=== PATIENT | male | born 1975 | race Caucasian/White ===

== ENCOUNTER 2017-03-27 16:47 | Emergency (ER) | payer OTHER ==
--- NOTE | 2017-03-27 17:24 | DIAGNOSTIC IMAGING REPORT ---
PROCEDURE: XR FINGER - RIGHT INDICATION: TRAUMA/INJURY TECHNIQUE: Three views of the right second digit. COMPARISON: None FINDINGS: Soft tissue injury. Normal osseous structures. IMPRESSION: 1. Soft tissue injury. Normal osseous structures.
--- NOTE | 2017-03-27 17:46 | ED CLINICAL REPORT ---
Clinical Report - Physicians/Mid Levels [facility] [address] [place] [address] 03/27/2017 16:50 [id number] Time Seen: 17:08 Mar 27 2017. Arrived- By private vehicle. Historian- patient. HISTORY OF PRESENT ILLNESS Chief Complaint: Injury to the right index finger. The injury happened just prior to arrival. Occurred at home. The patient sustained a laceration. Patient is experiencing mild pain. Patient denies injury to the head or neck. ( R. finger partial amputation prior to arrival while at home from a circ saw. NO injury prior. no diff with movement.). REVIEW OF SYSTEMS The patient sustained a laceration. No tingling. All systems otherwise negative, except as recorded above. PAST HISTORY The patient's dominant hand is the right. He has not had a prior injury to the same area. Tetanus immunization status is up-to-date. SOCIAL HISTORY Smoker- current status unknown. Alcohol use. No drug use. ADDITIONAL NOTES The nursing notes have been reviewed. PHYSICAL EXAM Vital Signs: 03/27/2017 16:58 BP: 124/82. HR: 87. RR: 20. O2 saturation: 98%. Temp: 97.8 F. Pain level now: 9/10. Appearance: Alert. No acute distress. Head: Head atraumatic. CVS: Normal heart rate and rhythm. Respiratory: No respiratory distress. Breath sounds normal. Skin: Skin warm. Extremities: Tip of left index finger: (radial tip amputation involving minimal distal nail, no nail bed involvement, full thickness. No signs of osseous injury. does not involve the dip/ pip.). Soft tissue tenderness present. No bony tenderness. No wrist injury. Neuro, Vascular and Tendons: Vascular status intact. Capillary refill not prolonged. Sensation intact. Motor intact. Tendon function intact. No functional tendon deficit. PROGRESS AND PROCEDURES Laceration Repair: Time: 18:12 Mar 27 2017. Location: (left index). Time-out completed immediately before the procedure. Length: 3 cm. Complexity: complex (requiring extensive undermining). Wound with avulsion and involving fascia. Wound is clean. No sensory deficit distally. Tendon not examined. Anesthesia provided by digital block using 0.50% Marcaine. Wound explored, cleansed and irrigated. Closure of deep layer: interrupted 4-0 (6 non absorb). Post-procedure: he is stable and there are no complications. Bleeding is controlled and neuro-vascular status is intact distal to the wound. Dressing applied. Tetanus immunization up-to-date. Course of Care: patient here in the ER with a tip amputation without any osseous involvement. Discussed case with Dr. Calvo. No signs of infectious process. No osseous injury. Full range of motion. Stable. We'll attempt to place the tip onto the digit, discussed options with the patient, including the possibility that the tip may not take while and may eventually fall off. He agrees to follow-up. Tetanus visualization up-to-date. 03/27/2017 16:58 BP: 124/82. HR: 87. RR: 20. O2 saturation: 98%. Temp: 97.8 F. Pain level now: 9/10. Patient is stable. Physical exam findings are improved. Symptoms better. Patient/family counseled. Disposition: Discharged. Condition: good. CLINICAL IMPRESSION Single deep laceration to the left index finger. Complicated repair. Treatment of laceration not delayed. No infection or foreign body present. Partial nail avulsion to left index finger. INSTRUCTIONS Protect wound and keep wound area clean. Apply bacitracin twice daily. Limit use of your hand. (follow up with your DR on Friday). Prescription Medications: Hydrocodone/APAP 5mg / 325mg: take 1 orally every 6 hours as needed for pain. Dispense ten (10). No refill. Cephalexin 500 mg: take 1 capsule orally for 10 days. No refill. OTC Medications: Take OTC medications according to label instructions. Available over the counter. Acetaminophen (available over the counter): take according to label instructions. Motrin (available over the counter): take according to label instructions. Follow-up: Follow up with your doctor Friday. (Electronically signed by Mohini Zambrano P.A.-C 03/27/2017 18:14)
--- NOTE | 2017-03-27 17:46 | ED NURSING NOTES ---
Clinical Report - Nurses [facility] [address] [place] [address] 03/27/2017 16:50 Patient: LISBETH MOSQUERA TRIAGE Triage time 16:55. Acuity: LEVEL 3. Chief Complaint: INJURY TO LEFT HAND. INJURY TO THE LEFT INDEX FINGER WITH PARTIAL AMPUTATION. Alert. No acute distress. --17:01 Mahsa Pagan R.N. 16:58 03/27/17. BP: 124/82. HR: 87. RR: 20. O2 saturation: 98%. Temp: 97.8 F. Pain level now: 08/10. --17:01 Mahsa Pagan R.N. 16:58 03/27/17. BP: 124/82. HR: 87. RR: 20. O2 saturation: 98%. Temp: 97.8 F. Pain level now: 08/10. --17:01 Mahsa Pagan R.N. Weight: 90.7 kg. Height/Length: 74 inches. BMI: 25.7. --17:01 Mahsa Pagan R.N. Medications None. --16:59 Mahsa Pagan R.N. Medication/allergy information source: the patient. --17:01 Mahsa Pagan R.N. Allergies None. --16:59 Mahsa Pagan R.N. History Arrived by private vehicle. Historian: patient and family. Primary physician ([facility]). This occurred just prior to arrival. He sustained a laceration (circ saw). 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 PAST MEDICAL HX: Negative. Tetanus status: up-to-date. SURGERY HX: No history of previous surgery. SOCIAL HX: Heavy tobacco smoker (cigarette)- 1-2 packs per day. History of drug use: marijuana. Recently used drugs days ago. No alcohol use. FALL RISK ASSESSMENT: Fall risk assessment completed. No fall risk identified. NUTRITIONAL RISK ASSESSMENT: The nutritional risk assessment revealed no deficiencies. FUNCTIONAL ASSESSMENT: Functional assessment: no impairments noted. LEARNING NEEDS ASSESSMENT: The learning needs assessment revealed no barriers. SKIN INTEGRITY ASSESSMENT: Skin integrity risk assessment completed. No skin integrity risk identified. --17:01 Mahsa Pagan R.N. PROBLEMS: no known problems. ADDITIONAL SURGERIES: no known surgeries. Interventions ID band on patient. To room. --17:01 Mahsa Pagan R.N. PHYSICAL ASSESSMENT Ambulatory to room. GENERAL / NEURO / PSYCH: Oriented X 4. Appears in pain and anxious. EXTREMITIES: Limited ROM present. Left hand: superficial abrasion and laceration with controlled bleeding. SKIN: Skin is warm and dry. Laceration to left index finger. --17:02 Mahsa Pagan R.N. NURSING PROGRESS NOTES Extremity elevated. Two patient identifiers checked. Call light placed in reach. Side rails up x 2. Bed placed in lowest position. Brakes of bed on. Patient ready for evaluation. --17:03 Mahsa Pagan R.N. Wound cleansed with sterile saline and chlorhexidine. Wound irrigated with 1000 mL sterile NS using a high-pressure irrigation system; patient tolerated procedure well. --17:33 [facility]. DISPOSITION / DISCHARGE Departure time: 18:13 Mar 27 2017. Condition at departure: improved. No learning barriers present. Discharge instructions provided and reviewed with the patient and spouse. Reviewed warnings. Reviewed medication(s). Treatments reviewed. Reviewed referrals. Work note given. Patient and spouse verbalized understanding. Written instructions provided in Albanian. The patient was discharged home and accompanied by spouse. He left the Emergency Department ambulatory and via private vehicle. Spouse driving. ( Wound dressed and antibiotic ointment applied. Instructions given on dressing change and follow up .). --18:14 Pauly Owen R.N. 18:12 03/27/17. BP: 124/72. HR: 70. RR: 18. O2 saturation: 97%. Temp: 98.6 F. Pain level now 06/09. --18:14 Pauly Owen R.N. Locked/Released at 04/04/2017 7:14 by Pauly Owen R.N.
--- NOTE | 2017-03-27 17:46 | ED ORDER SUMMARY ---
..... Patient: LISBETH MOSQUERA OrderSheet [facility] VisitID: [id number] [address] [place] [address] 42y, M Registration Date/Time: 03/27/2017 ORDER SHEET Weight: 90.7 kg Allergies: None GENERAL ORDERS: Finger Right (2) Urgent (16:59 03/27/2017 EKoroleva P.A.-C) (Ack 17:01 Rosa) (Cancelled: Other18:03 EKoroleva P.A.-C) Finger Left (2) Urgent (18:03 03/27/2017 EKoroleva P.A.-C) (18:04 Glenna Richard) MEDICATION ORDERS: IV FLUIDS: ORDER SHEET NOTES: [Electronically signed by Mohini Zambrano PJoceAJoce-C (18:14 03/27/2017)] [Electronically signed by aPuly Owen R.N. (07:14 04/04/2017)] [Electronically locked/signed by Pauly Owen R.N. (07:14 04/04/2017)]
--- NOTE | 2017-03-27 17:46 | ED NURSING NOTES ---
Clinical Report - Nurses [facility] [address] [place] [address] 03/27/2017 16:50 Patient: LISBETH MOSQUERA TRIAGE Triage time 16:55. Acuity: LEVEL 3. Chief Complaint: INJURY TO LEFT HAND. INJURY TO THE LEFT INDEX FINGER WITH PARTIAL AMPUTATION. Alert. No acute distress. --17:01 Mahsa Pagan R.N. 16:58 03/27/17. BP: 124/82. HR: 87. RR: 20. O2 saturation: 98%. Temp: 97.8 F. Pain level now: 08/10. --17:01 Mahsa Pagan R.N. 16:58 03/27/17. BP: 124/82. HR: 87. RR: 20. O2 saturation: 98%. Temp: 97.8 F. Pain level now: 08/10. --17:01 Mahsa Pagan R.N. Weight: 90.7 kg. Height/Length: 74 inches. BMI: 25.7. --17:01 Mahsa Pagan R.N. Medications None. --16:59 Mahsa Pagan R.N. Medication/allergy information source: the patient. --17:01 Mahsa Pagan R.N. Allergies None. --16:59 Mahsa Pagan R.N. History Arrived by private vehicle. Historian: patient and family. [facility] This occurred just prior to arrival. He sustained a laceration (circ saw). 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 PAST MEDICAL HX: Negative. Tetanus status: up-to-date. SURGERY HX: No history of previous surgery. SOCIAL HX: Heavy tobacco smoker (cigarette)- 1-2 packs per day. History of drug use: marijuana. Recently used drugs days ago. No alcohol use. FALL RISK ASSESSMENT: Fall risk assessment completed. No fall risk identified. NUTRITIONAL RISK ASSESSMENT: The nutritional risk assessment revealed no deficiencies. FUNCTIONAL ASSESSMENT: Functional assessment: no impairments noted. LEARNING NEEDS ASSESSMENT: The learning needs assessment revealed no barriers. SKIN INTEGRITY ASSESSMENT: Skin integrity risk assessment completed. No skin integrity risk identified. --17:01 Mahsa Pagan R.N. PROBLEMS: no known problems. ADDITIONAL SURGERIES: no known surgeries. Interventions ID band on patient. To room. --17:01 Mahsa Pagan R.N. PHYSICAL ASSESSMENT Ambulatory to room. GENERAL / NEURO / PSYCH: Oriented X 4. Appears in pain and anxious. EXTREMITIES: Limited ROM present. Left hand: superficial abrasion and laceration with controlled bleeding. SKIN: Skin is warm and dry. Laceration to left index finger. --17:02 Mahsa Pagan R.N. NURSING PROGRESS NOTES Extremity elevated. Two patient identifiers checked. Call light placed in reach. Side rails up x 2. Bed placed in lowest position. Brakes of bed on. Patient ready for evaluation. --17:03 Mahsa Pagan R.N. Wound cleansed with sterile saline and chlorhexidine. Wound irrigated with 1000 mL sterile NS using a high-pressure irrigation system; patient tolerated procedure well. --17:33 [facility]. DISPOSITION / DISCHARGE Departure time: 18:13 Mar 27 2017. Condition at departure: improved. No learning barriers present. Discharge instructions provided and reviewed with the patient and spouse. Reviewed warnings. Reviewed medication(s). Treatments reviewed. Reviewed referrals. Work note given. Patient and spouse verbalized understanding. Written instructions provided in Filipino. The patient was discharged home and accompanied by spouse. He left the Emergency Department ambulatory and via private vehicle. Spouse driving. ( Wound dressed and antibiotic ointment applied. Instructions given on dressing change and follow up .). --18:14 Pauly Owen R.N. 18:12 03/27/17. BP: 124/72. HR: 70. RR: 18. O2 saturation: 97%. Temp: 98.6 F. Pain level now 06/09. --18:14 Pauly Owen R.N. Locked/Released at 04/04/2017 7:14 by Pauly Owen R.N.
--- NOTE | 2017-03-27 17:46 | ED ORDER SUMMARY ---
..... Patient: LISBETH MOSQUERA OrderSheet [facility] VisitID: [id number] [address] [place] [address] 42y, M Registration Date/Time: 03/27/2017 ORDER SHEET Weight: 90.7 kg Allergies: None GENERAL ORDERS: Finger Right (2) Urgent (16:59 03/27/2017 EKoroleva P.A.-C) (Ack 17:01 Rosa) (Cancelled: Other18:03 EKoroleva P.A.-C) Finger Left (2) Urgent (18:03 03/27/2017 EKoroleva P.A.-C) (18:04 Glenna Richard) MEDICATION ORDERS: IV FLUIDS: ORDER SHEET NOTES: [Electronically signed by Mohini Zambrano PJoceAJoce-C (18:14 03/27/2017)] [Electronically signed by Pauly Owen R.N. (07:14 04/04/2017)] [Electronically locked/signed by Pauly Owen R.N. (07:14 04/04/2017)]
--- NOTE | 2017-03-28 13:50 | DIAGNOSTIC IMAGING REPORT ---
PROCEDURE: XR FINGER - LEFT INDICATION: TRAUMA/INJURY TECHNIQUE: Three views of the left hand and index finger. COMPARISON: None FINDINGS: There is soft tissue injury. No osseous injury. No fracture. IMPRESSION: 1. No bony injury. Soft tissue resection.
--- NOTE | 2017-04-04 07:14 | ED DISCHARGE INSTRUCTIONS ---
Patient: LISBETH MOSQUERA General Instructions [facility] VisitID: [id number] [address] [place] [address] 42y, M Registration Date/Time: 03/27/2017 Single deep laceration to the left index finger. Complicated repair. Treatment of laceration not delayed. No infection or foreign body present. Partial nail avulsion to left index finger. INSTRUCTIONS Protect wound and keep wound area clean. Apply bacitracin twice daily. Limit use of your hand. (follow up with your DR on Friday). Prescription Medications: Hydrocodone/APAP 5mg / 325mg: take 1 orally every 6 hours as needed for pain. Dispense ten (10). No refill. Cephalexin 500 mg: take 1 capsule orally for 10 days. No refill. OTC Medications: Take OTC medications according to label instructions. Available over the counter. Acetaminophen (available over the counter): take according to label instructions. Motrin (available over the counter): take according to label instructions. Follow-up: Follow up with your doctor Friday. ADDITIONAL INFORMATION Laceration, Extremity (Sutures, Matti, Or Tape) A laceration is a cut through the skin. This will usually require stitches (sutures) or matti if it is deep. Minor cuts may be treated with surgical tape closures. Home care The following guidelines will help you care for your laceration at home: Keep the wound clean and dry. If a bandage was applied and it becomes wet or dirty, replace it. Otherwise, leave it in place for the first 24 hours, then change it once a day or as directed. If stitches or matti were used, clean the wound daily: After removing the bandage, wash the area with soap and water. Use a wet cotton swab to loosen and remove any blood or crust that forms. After cleaning, keep the wound clean and dry. Talk with your doctor before applying any antibiotic ointment to the wound. Reapply the bandage. You may remove the bandage to shower as usual after the first 24 hours, but do not soak the area in water (no swimming) until the stitches or matti are removed. If surgical tape closures were used, keep the area clean and dry. If it becomes wet, blot it dry with a towel. The doctor may prescribe an antibiotic cream or ointment to prevent infection. Do not stop taking this medication until you have finished the prescribed course or the doctor tells you to stop. The doctor may also prescribe medications for pain. Follow the doctors instructions for taking these medications. If you have chronic liver or kidney disease or ever had a stomach ulcer or GI bleeding, talk with your doctor before using these medicines. Follow-up care Follow up with your health care provider. Most skin wounds heal within ten days. However, an infection may sometimes occur despite proper treatment. Therefore, check the wound daily for the signs of infection listed below. Stitches and matti should be removed within 714 days. If surgical tape closures were used, you may remove them after 10 days, if they have not fallen off by then. Notify your doctor if you notice persistent numbness or weakness in the injured extremity. (Note:A radiologist will review any X-rays that were taken. We will notify you of any new findings that may affect your care.) When to seek medical care Get prompt medical attention if any of these occur: Increasing pain in the wound Redness, swelling, or pus coming from the wound Fever of 100.4F (38C) or higher, or as directed by your health care provider If stitches or matti come apart or fall out before your next appointment If the surgical tape closures fall off within seven days, or the wound edges re-open Bleeding not controlled by direct pressure Nail Injury (Partial Finger/Toe Nail Plate Avulsion) Some injuries to a finger or toe can cause loosening of the nail. Sometimes there is a cutin the nail bed or a fracture of the bone under the nail. If the nail is more severely injured, it may fall off completely in 12 weeks. This is not serious and in most cases, the nail will grow back from under the cuticle. This takes a few weeks to start and is complete in about 46 months for a fingernail and 12 months for a toenail. If the nail bed was damaged, the nail may grow back with a rough or irregular shape. Sometimes the nail may not regrow at all. Home care The following guidelines will help you care for your wound at home: Keep the injured part elevated to reduce pain and swelling. This is very important during the first 48 hours. Make an ice pack (ice cubes in a plastic bag, wrapped in a towel) and apply for 20 minutes every two hours during the first day, then 34 times a day to reduce swelling and pain until the swelling goes down. You may use acetaminophen or ibuprofen to control pain, unless another pain medicine was prescribed.If you have chronic liver or kidney disease or ever had a stomach ulcer or GI bleeding, talk with your doctor before using these medicines. Do not use ibuprofen in children under six months of age. If a bandage was applied, change it once a day, unless told otherwise. Be careful not to pull on the nail when removing the dressing. If necessary, soak the dressing off while holding your finger or toe under warm running water. Apply a layer of antibiotic ointment onto the nail before putting on the new dressing or adhesive bandage. This will help keep it from sticking. If an X-ray was taken and a fracture was found, it will take about four weeks for this to heal. The injured part should be protected with a splint or tape while it is healing. If you were prescribed antibiotics to prevent infection, take them as directed until they are all gone. Follow-up care Follow up with your doctor or this facility as directed. Note:If X-rays were taken, they will be reviewed by a radiologist. You will be notified of any new findings that may affect your care. When to seek medical care Get prompt medical attention if any of the following occur: Pain or swelling increase Redness around the nail Pus (creamy white or yellow fluid) draining from the nail Fever of 100.4F (38C) or higher, or as directed by your health care provider Hydrocodone Bitartrate, Acetaminophen Oral tablet What is this medicine? ACETAMINOPHEN; HYDROCODONE (a set a KAIT justice fen; lalit droe KOE done) is a pain reliever. It is used to treat mild to moderate pain. How should I use this medicine? Take this medicine by mouth. Swallow it with a full glass of water. Follow the directions on the prescription label. If the medicine upsets your stomach, take the medicine with food or milk. Do not take more than you are told to take. Talk to your grizzly worker regarding the use of this medicine in children. This medicine is not approved for use in children. What side effects may I notice from receiving this medicine? Side effects that you should report to your doctor or health children's zoo caretaker as soon as possible: allergic reactions like skin rash, itching or hives, swelling of the face, lips, or tongue breathing problems confusion feeling faint or lightheaded, falls stomach pain yellowing of the eyes or skin Side effects that usually do not require medical attention (report to your doctor or health children's zoo caretaker if they continue or are bothersome): nausea, vomiting stomach upset What may interact with this medicine? alcohol antihistamines isoniazid medicines for depression, anxiety, or psychotic disturbances medicines for sleep muscle relaxants naltrexone narcotic medicines (opiates) for pain phenobarbital ritonavir tramadol What if I miss a dose? If you miss a dose, take it as soon as you can. If it is almost time for your next dose, take only that dose. Do not take double or extra doses. Where should I keep my medicine? Keep out of the reach of children. This medicine can be abused. Keep your medicine in a safe place to protect it from theft. Do not share this medicine with anyone. Selling or giving away this medicine is dangerous and against the law. Store at room temperature between 15 and 30 degrees C (59 and 86 degrees F). Protect from light. Keep container tightly closed. Throw away any unused medicine after the expiration date. Discard unused medicine and used packaging carefully. Pets and children can be harmed if they find used or lost packages. What should I tell my health care provider before I take this medicine? They need to know if you have any of these conditions: brain tumor Crohn's disease, inflammatory bowel disease, or ulcerative colitis drink more than 3 alcohol-containing drinks per day drug abuse or addiction head injury heart or circulation problems kidney disease or problems going to the bathroom liver disease lung disease, asthma, or breathing problems an unusual or allergic reaction to acetaminophen, hydrocodone, other opioid analgesics, other medicines, foods, dyes, or preservatives or trying to get breast-feeding What should I watch for while using this medicine? Tell your doctor or health children's zoo caretaker if your pain does not go away, if it gets worse, or if you have new or a different type of pain. You may develop tolerance to the medicine. Tolerance means that you will need a higher dose of the medicine for pain relief. Tolerance is normal and is expected if you take the medicine for a long time. Do not suddenly stop taking your medicine because you may develop a severe reaction. Your body becomes used to the medicine. This does NOT mean you are addicted. Addiction is a behavior related to getting and using a drug for a non-medical reason. If you have pain, you have a medical reason to take pain medicine. Your doctor will tell you how much medicine to take. If your doctor wants you to stop the medicine, the dose will be slowly lowered over time to avoid any side effects. You may get drowsy or dizzy when you first start taking the medicine or change doses. Do not drive, use machinery, or do anything that may be dangerous until you know how the medicine affects you. Stand or sit up slowly. There are different types of narcotic medicines (opiates) for pain. If you take more than one type at the same time, you may have more side effects. Give your health care provider a list of all medicines you use. Your doctor will tell you how much medicine to take. Do not take more medicine than directed. Call emergency for help if you have problems breathing. The medicine will cause constipation. Try to have a bowel movement at least every 2 to 3 days. If you do not have a bowel movement for 3 days, call your doctor or health children's zoo caretaker. Too much acetaminophen can be very dangerous. Do not take Tylenol (acetaminophen) or medicines that contain acetaminophen with this medicine. Many non-prescription medicines contain acetaminophen. Always read the labels carefully. Cephalexin Monohydrate Oral tablet What is this medicine? CEPHALEXIN (sef a KAIA in) is a cephalosporin antibiotic. It is used to treat certain kinds of bacterial infections It will not work for colds, flu, or other viral infections. How should I use this medicine? Take this medicine by mouth with a full glass of water. Follow the directions on the prescription label. This medicine can be taken with or without food. Take your medicine at regular intervals. Do not take your medicine more often than directed. Take all of your medicine as directed even if you think you are better. Do not skip doses or stop your medicine early. Talk to your grizzly worker regarding the use of this medicine in children. While this drug may be prescribed for selected conditions, precautions do apply. What side effects may I notice from receiving this medicine? Side effects that you should report to your doctor or health children's zoo caretaker as soon as possible: allergic reactions like skin rash, itching or hives, swelling of the face, lips, or tongue breathing problems pain or trouble passing urine redness, blistering, peeling or loosening of the skin, including inside the mouth severe or watery diarrhea unusually weak or tired yellowing of the eyes, skin Side effects that usually do not require medical attention (report to your doctor or health children's zoo caretaker if they continue or are bothersome): gas or heartburn genital or anal irritation headache joint or muscle pain nausea, vomiting What may interact with this medicine? probenecid some other antibiotics What if I miss a dose? If you miss a dose, take it as soon as you can. If it is almost time for your next dose, take only that dose. Do not take double or extra doses. There should be at least 4 to 6 hours between doses. Where should I keep my medicine? Keep out of the reach of children. Store at room temperature between 59 and 86 degrees F (15 and 30 degrees C). Throw away any unused medicine after the expiration date. What should I tell my health care provider before I take this medicine? They need to know if you have any of these conditions: kidney disease stomach or intestine problems, especially colitis an unusual or allergic reaction to cephalexin, other cephalosporins, penicillins, other antibiotics, medicines, foods, dyes or preservatives or trying to get breast-feeding What should I watch for while using this medicine? Tell your doctor or health children's zoo caretaker if your symptoms do not begin to improve in a few days. Do not treat diarrhea with over the counter products. Contact your doctor if you have diarrhea that lasts more than 2 days or if it is severe and watery. If you have diabetes, you may get a false-positive result for sugar in your urine. Check with your doctor or health children's zoo caretaker. You have been given the following additional information: Laceration, Extrem (Suture, Staple, Or Tape) Nail Avulsion, Partial Hydrocodone Bitartrate, Acetaminophen Oral tablet Cephalexin Monohydrate Oral tablet Limit use of your hand. (Electronically signed by Mohini Zambrano P.A.-C 03/27/2017 18:14)
--- NOTE | 2017-04-04 07:15 | ED MED RECONCILIATION SUMMARY ---
Patient: LISBETH MOSQUERA Medication Reconciliation Report [facility] VisitID: [id number] [address] [place] [address] 42y, M Registration Date/Time: 03/27/2017 Weight: 90.7 kg Height/Length: 74 in. BMI: 25.7 ALLERGIES: None The patient's Home Medications are listed below: NONE. The source(s) of the original Home Medication information: patient The following Medications were given to the patient in the Emergency Department: None. The following Medications were prescribed to the patient: Take OTC medications according to label instructions. Available over the counter. -- Mohini Zambrano, P.A.-C Acetaminophen (available over the counter): take according to label instructions. -- Mohini Zambrano, P.A.-C Motrin (available over the counter): take according to label instructions. -- Mohini Zambrano, P.A.-C Hydrocodone/APAP 5mg / 325mg: take 1 orally every 6 hours as needed for pain. Dispense ten (10). No refill. -- Mohini Zambrano, P.A.-C Cephalexin 500 mg: take 1 capsule orally for 10 days. No refill. -- Mohini Zambrano, P.A.-C
--- NOTE | 2017-04-04 07:15 | ED MAR SUMMARY ---
..... Medication Administration Record [facility] [address] [place], [place] [id number] Patient: LISBETH MOSQUERA Visit ID: [id number] 42y, M Weight: 90.7 kg Height/Length: 74 in BMI: 25.7 ALLERGIES: None
--- NOTE | 2017-04-04 07:15 | ED MAR SUMMARY ---
..... Medication Administration Record [facility] [address] [place], [place] [id number] Patient: LISBETH MOSQUERA Visit ID: [id number] 42y, M Weight: 90.7 kg Height/Length: 74 in BMI: 25.7 ALLERGIES: None
--- NOTE | 2017-04-04 07:15 | ED MED RECONCILIATION SUMMARY ---
Patient: LISBETH MOSQUERA Medication Reconciliation Report [facility] VisitID: [id number] [address] [place] [address] 42y, M Registration Date/Time: 03/27/2017 Weight: 90.7 kg Height/Length: 74 in. BMI: 25.7 ALLERGIES: None The patient's Home Medications are listed below: NONE. The source(s) of the original Home Medication information: patient The following Medications were given to the patient in the Emergency Department: None. The following Medications were prescribed to the patient: Take OTC medications according to label instructions. Available over the counter. -- Mohini Zambrano, P.A.-C Acetaminophen (available over the counter): take according to label instructions. -- Mohini Zambrano, P.A.-C Motrin (available over the counter): take according to label instructions. -- Mohini Zambrano, P.A.-C Hydrocodone/APAP 5mg / 325mg: take 1 orally every 6 hours as needed for pain. Dispense ten (10). No refill. -- Mohini Zambrano, P.A.-C Cephalexin 500 mg: take 1 capsule orally for 10 days. No refill. -- Mohini Zambrano, P.A.-C
== END 2017-03-27 18:03 | disposition home or self-care (01) ==
LOC: ED SRH 16:47
DX: S61.301A Unspecified open wound of left index finger with damage to nail, initial encounter (principal); W31.2XXA Contact with powered woodworking and forming machines, initial encounter; Y93.89 Activity, other specified; Y99.9 Unspecified external cause status; Y92.009 Unspecified place in unspecified non-institutional (private) residence as the place of occurrence of the external cause; F17.210 Nicotine dependence, cigarettes, uncomplicated

== ENCOUNTER 2017-04-01 14:27 | Emergency (ER) | payer OTHER ==
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
--- NOTE | 2017-04-01 14:49 | ED NURSING NOTES ---
Clinical Report - Nurses [facility] [address] [place] [address] 04/01/2017 14:28 Patient: LISBETH MOSQUERA TRIAGE Triage time 1444 PM. Acuity: LEVEL 5. Chief Complaint: RECHECK OF WOUND and SUTURE REMOVAL. Alert. No acute distress. --14:50 Geraldine Jeff R.N. 14:42 04/01/17. BP: 142/86 taken while lying. HR: 63. RR: 14. O2 saturation: 94% on room air. Temp: 98.1 F (oral). Pain level now: 04/09. --14:50 Geraldine Jeff R.N. Weight: 113.3 kg stated. Height/Length: 74 inches Per Patient. BMI: 32.1. --14:42 Geraldine Jeff R.N. Medications None. --14:45 Geraldine Jeff R.N. Allergies None. --14:45 Geraldine Jeff R.N. Medication/allergy information source: the patient. --14:50 Geraldine Jeff R.N. History Arrived by private vehicle. Historian: family. Accompanied by family. ( Pt here for a wound recheck and stitches to "come out" pt is currently on antibiotics, 2nd finger noted to be wrapped in a dressing. Pt states no fevers, a bit of pain on the left side of the injured finger. Finger pink, noted to be wet like, pt states he took a shower and placed some ointment on it and dressed it.). Location: left second finger. He has had drainage from wound and has experienced pain. Has had no redness. No fever or skin rash. Previous treatment: Previously seen in this ED four days ago. Topical antibiotic given in ED. Prescription given for antibiotic. PAST MEDICAL HX: Tetanus status: up-to-date. Immunizations: up-to-date. SOCIAL HX: Heavy tobacco smoker- less than 1 pack per day. Alcohol use. No drug use. No infectious disease exposure. ABUSE ASSESSMENT: No report of abuse. SELF HARM ASSESSMENT: A self harm assessment was performed. The patient answered "no" to the question "Do you have thoughts of harming or killing yourself?" and "Have you recently had thoughts about harming or killing others?". FALL RISK ASSESSMENT: Fall risk assessment completed. No fall risk identified. NUTRITIONAL RISK ASSESSMENT: The nutritional risk assessment revealed no deficiencies. FUNCTIONAL ASSESSMENT: Functional assessment: no impairments noted. LEARNING NEEDS ASSESSMENT: The learning needs assessment revealed no barriers. SKIN INTEGRITY ASSESSMENT: Skin integrity risk assessment completed. No skin integrity risk identified. --14:50 Geraldine Jeff R.N. PROBLEMS: Laceration. Nail Avulsion. --14:45 Geraldien Jeff R.N. ADDITIONAL SURGERIES: no known surgeries. Interventions ID band on patient. --14:50 Geraldine Jeff R.N. PHYSICAL ASSESSMENT Ambulatory to room. GENERAL / NEURO / PSYCH: Alert. Oriented X 4. Appears in no acute distress. Patient's nutrition appears within normal limits. EXTREMITIES: Extremity pulses are within normal limits. Capillary refill is less than 2 seconds in the extremities. Sensation intact in extremities. ROM of extremities within normal limits. SKIN: Skin is warm. No signs or symptoms of infection. Sutures intact. Tenderness. Swelling. No drainage, blistering noted or skin rash. --14:50 Geraldine Jeff R.N. NURSING PROGRESS NOTES The initial plan of care for this patient has been created This plan of care was discussed with the patient. Neuro-vascular extremity check. Reassurance given. Two patient identifiers checked. Call light placed in reach. Side rails up x 1. --14:50 Geraldine Jeff R.N. DISPOSITION / DISCHARGE Departure time: 1502 PM. Condition at departure: stable. The goals identified in the patient's plan of care were met. No learning barriers present. Discharge instructions provided and reviewed with the patient and spouse. Reviewed warnings (s/s of infection). Reviewed medication(s) side effects, precautions, dosing and course information. Prescription(s) given to the patient. Activity restrictions (minimal use of injured extremity) reviewed. Patient and spouse verbalized understanding. Written instructions provided in Romansh. ( Wound dressed minimally with dry dressing, pt and spouse instructed on wound care and the importance of leaving it open and let it dry.). 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 He was discharged home and accompanied by spouse. He left the Emergency Department ambulatory and via private vehicle. Spouse driving. FALL RISK ASSESSMENT: Fall risk assessment completed. No fall risk identified. --15:03 Geraldine Jeff R.N. 15:00 04/01/17. BP: 129/45. HR: 87. RR: 14. O2 saturation: 96% on room air. Temp: 98.1 F (oral). Pain level now: 03/10. --15:03 Geraldine Jeff R.N. Locked/Released at 04/01/2017 15:03 by Geraldine Jeff R.N.
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
--- NOTE | 2017-04-01 15:03 | ED MED RECONCILIATION SUMMARY ---
Patient: LISBETH MOSQUERA Medication Reconciliation Report [facility] VisitID: [id number] [address] [place] [address] 42y, M Registration Date/Time: 04/01/2017 Weight: 113.3 kg Height/Length: 74 in. BMI: 32.1 ALLERGIES: None The patient's Home Medications are listed below: NONE. The source(s) of the original Home Medication information: patient The following Medications were given to the patient in the Emergency Department: None. The following Medications were prescribed to the patient: Hydrocodone/APAP 5mg / 325mg: take 1 orally every 6 hours as needed for pain.(#8) -- Mohini Zambrano P.A.-C
--- NOTE | 2017-04-01 15:03 | ED MED RECONCILIATION SUMMARY ---
Patient: LISBETH MOSQUERA Medication Reconciliation Report [facility] VisitID: [id number] [address] [place] [address] 42y, M Registration Date/Time: 04/01/2017 Weight: 113.3 kg Height/Length: 74 in. BMI: 32.1 ALLERGIES: None The patient's Home Medications are listed below: NONE. The source(s) of the original Home Medication information: patient The following Medications were given to the patient in the Emergency Department: None. The following Medications were prescribed to the patient: Hydrocodone/APAP 5mg / 325mg: take 1 orally every 6 hours as needed for pain.(#8) -- Mohini Zambrano P.A.-C
--- NOTE | 2017-04-01 15:03 | ED MAR SUMMARY ---
..... Medication Administration Record [facility] [address] [place] [id number] Patient: LISBETH MOSQUERA Visit ID: [id number] 42y, M Weight: 113.3 kg Height/Length: 74 in BMI: 32.1 ALLERGIES: None
--- NOTE | 2017-04-01 15:03 | ED DISCHARGE INSTRUCTIONS ---
Patient: LISBETH MOSQUERA General Instructions [facility] VisitID: [id number] [place] [address] 42y, M Registration Date/Time: 04/01/2017 Wound check INSTRUCTIONS Protect wound and keep wound area clean. (no soap/ water for 48 hours, no dressings, keep dry, no moisture). (follow up for wound check in 3-[address] continue taking your antibiotics). Prescription Medications: Hydrocodone/APAP 5mg / 325mg: take 1 orally every 6 hours as needed for pain. (#8) Follow-up: Follow up with your doctor in three days for wound check. ADDITIONAL INFORMATION Wound Check, No Infection Your laceration is healing as expected. There is no infection. Home care The following guidelines will help you care for your wound at home: Keep the wound clean and dry. If you were given a bandage, you may change it daily as follows: After removing the bandage, wash the area with soap and water. Use a wet cotton swab to loosen and remove any blood or crust that forms. After cleaning, apply a thin layer of antibiotic ointment. This will keep the wound clean and make it easier to remove the stitches. Reapply a fresh bandage. You may remove the bandage to shower as usual after the first 24 hours, but do not soak the area in water (no swimming) until the sutures are removed. If surgical tape was used, keep the area clean and dry. If it becomes wet, blot it dry with a towel. Follow-up care If sutures or rach are in place, it is important to keep your appointment for removal. If they are left in place too long permanent montalvo may remain. If surgical tape closures were applied, you may remove them yourself if they have not fallen of by 10 days after the injury. When to seek medical care Get prompt medical attention if any of the following occur: Increasing pain in the wound Redness, swelling, or pus coming from the wound Fever of 100.4F (38C) or higher, or as directed by your health care provider If sutures or rach come apart or fall out before your next appointment If the surgical tape closures fall off within seven days, or the wound edges re-open You have been given the following additional information: Wound Check, Lac F/U (No Infection) (Electronically signed by Mohini Zambrano P.A.-C 04/01/2017 14:59)
--- NOTE | 2017-04-01 15:03 | ED MAR SUMMARY ---
..... Medication Administration Record [facility] [address] [place], [place] [id number] Patient: LISBETH MOSQUERA Visit ID: [id number] 42y, M Weight: 113.3 kg Height/Length: 74 in BMI: 32.1 ALLERGIES: None
== END 2017-04-01 15:03 | disposition home or self-care (01) ==
LOC: ED SRH 14:27
DX: S61.211D Laceration without foreign body of left index finger without damage to nail, subsequent encounter (principal); W45.8XXD Other foreign body or object entering through skin, subsequent encounter

== ENCOUNTER 2017-05-09 21:49 | Emergency (ER) | payer OTHER ==
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
--- NOTE | 2017-05-09 22:43 | ED ORDER SUMMARY ---
..... Patient: LISBETH MOSQUERA OrderSheet [facility] VisitID: [id number] [place] [address] 42y, M Registration Date/Time: 05/09/2017 ORDER SHEET Weight: 131.0 kg (stated) Allergies: None GENERAL ORDERS: MEDICATION ORDERS: Gyxvwgg-Iwsish-Evmpf Pertussis IM 0.5 mL (NOW, per protocol) (22:40 05/09/2017 Mahesh Lovelace) (Ack 23:05 JQuivey R.N.) (23:12 JQuivey R.N.) Bactrim DS PO (Tablet 800-160 mg) 1 tab (NOW) (22:41 05/09/2017 Mahesh Lovelace) (Ack 23:05 JQuivey R.N.) (23:12 JQuivey R.N.) Keflex PO 500 mg (NOW) (22:41 05/09/2017 Mahesh Lovelace) (Ack 23:05 JQuivey R.N.) (23:12 JQuivey R.N.) IV FLUIDS: ORDER SHEET NOTES: [Electronically signed by Dusty Calvo Dr. (05:16 05/11/2017)] [Electronically signed by Elva May R.N. (06:50 05/12/2017)] [Electronically locked/signed by Elva May R.N. (06:50 05/12/2017)]
--- NOTE | 2017-05-09 22:43 | ED ORDER SUMMARY ---
..... Patient: LISBETH MOSQUERA OrderSheet [facility] VisitID: [id number] [place] [address] 42y, M Registration Date/Time: 05/09/2017 ORDER SHEET Weight: 131.0 kg (stated) Allergies: None GENERAL ORDERS: MEDICATION ORDERS: Weplofe-Uyhvxh-Pwpgs Pertussis IM 0.5 mL (NOW, per protocol) (22:40 05/09/2017 Mahesh Lovelace) (Ack 23:05 JQuivey R.N.) (23:12 JQuivey R.N.) Bactrim DS PO (Tablet 800-160 mg) 1 tab (NOW) (22:41 05/09/2017 Mahesh Lovelace) (Ack 23:05 JQuivey R.N.) (23:12 JQuivey R.N.) Keflex PO 500 mg (NOW) (22:41 05/09/2017 Mahesh Lovelace) (Ack 23:05 JQuivey R.N.) (23:12 JQuivey R.N.) IV FLUIDS: ORDER SHEET NOTES: [Electronically signed by Dusty Calvo Dr. (05:16 05/11/2017)] [Electronically signed by Elva May R.N. (06:50 05/12/2017)] [Electronically locked/signed by Elva May R.N. (06:50 05/12/2017)]
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
--- NOTE | 2017-05-12 06:51 | ED MAR SUMMARY ---
..... Medication Administration Record [facility] [address] [place] [address] Patient: LISBETH MOSQUERA Visit ID: [id number] 42y, M Weight: 131.0 kg Height/Length: 75 in BMI: 36.1 ALLERGIES: None Given 23:05/09/2017 Elieser Valentin, R.N. Medication Administered: BACTRIM DS [PO] (SULFAMETHOXAZOLE-TMP DS), Dose: 1 tab PO. Medication Ordered: Bactrim DS PO (Tablet 800-160 mg) 1 tab (NOW). Given 23:05/09/2017 Elieser Valentin, R.N. Medication Administered: KEFLEX [PO] (CEPHALEXIN), Dose: 500 mg PO. Medication Ordered: Keflex PO 500 mg (NOW). Given 23:05/09/2017 Elieser Valentin, R.N. Medication Administered: [id number]-DMRMQL-PEOLE PERTUSSIS [IM], Dose: 0.5 mL IM. Medication Ordered: Spvkxwb-Ysxrxr-Zdftr Pertussis IM 0.5 mL (NOW, per protocol).
--- NOTE | 2017-05-12 06:51 | ED MED RECONCILIATION SUMMARY ---
Patient: LISBETH MOSQUERA Medication Reconciliation Report [facility] VisitID: [id number] [place] [address] 42y, M Registration Date/Time: 05/09/2017 Weight: 131.0 kg Height/Length: 75 in. BMI: 36.1 ALLERGIES: None The patient's Home Medications are listed below: NONE. The source(s) of the original Home Medication information: patient The following Medications were given to the patient in the Emergency Department: [id number]-[id number]-[id number] PERTUSSIS [IM] IM 0.5 mL, administered: 05/09/2017 11:08:00 PM Bactrim DS [PO] PO 1 tab, administered: 05/09/2017 11:07:00 PM Keflex [PO] PO 500 mg, administered: 05/09/2017 11:07:00 PM The following Medications were prescribed to the patient: Bactrim DS 800 mg / 160 mg: take 1 tablet orally every 12 hours for 10 days. No refill. Substitution is permissible.(disp 20 tabs) -- Dusty Calvo Dr. Keflex 500 mg: take 1 capsule orally every 8 hours for 10 days. No refill. Substitution is permissible.(disp 30 caps) -- Dusty Calvo Dr.
--- NOTE | 2017-05-12 06:51 | ED MAR SUMMARY ---
..... Medication Administration Record [facility] [address] [place] [address] Patient: LISBETH MOSQUERA Visit ID: [id number] 42y, M Weight: 131.0 kg Height/Length: 75 in BMI: 36.1 ALLERGIES: None Given 23:05/09/2017 Elieser Valentin, R.N. Medication Administered: BACTRIM DS [PO] (SULFAMETHOXAZOLE-TMP DS), Dose: 1 tab PO. Medication Ordered: Bactrim DS PO (Tablet 800-160 mg) 1 tab (NOW). Given 23:05/09/2017 Elieser Valentin, R.N. Medication Administered: KEFLEX [PO] (CEPHALEXIN), Dose: 500 mg PO. Medication Ordered: Keflex PO 500 mg (NOW). Given 23:05/09/2017 Elieser Valentin, R.N. Medication Administered: [id number]-PJGKEA-MGMJW PERTUSSIS [IM], Dose: 0.5 mL IM. Medication Ordered: Lukawfk-Kaenhm-Xjmeh Pertussis IM 0.5 mL (NOW, per protocol).
--- NOTE | 2017-05-12 06:51 | ED MED RECONCILIATION SUMMARY ---
Patient: LISBETH MOSQUERA Medication Reconciliation Report [facility] VisitID: [id number] [place] [address] 42y, M Registration Date/Time: 05/09/2017 Weight: 131.0 kg Height/Length: 75 in. BMI: 36.1 ALLERGIES: None The patient's Home Medications are listed below: NONE. The source(s) of the original Home Medication information: patient The following Medications were given to the patient in the Emergency Department: [id number] PERTUSSIS [IM] IM 0.5 mL, administered: 05/09/2017 11:08:00 PM Bactrim DS [PO] PO 1 tab, administered: 05/09/2017 11:07:00 PM Keflex [PO] PO 500 mg, administered: 05/09/2017 11:07:00 PM The following Medications were prescribed to the patient: Bactrim DS 800 mg / 160 mg: take 1 tablet orally every 12 hours for 10 days. No refill. Substitution is permissible.(disp 20 tabs) -- Dusty Calvo Dr. Keflex 500 mg: take 1 capsule orally every 8 hours for 10 days. No refill. Substitution is permissible.(disp 30 caps) -- Dusty Calvo Dr.
--- NOTE | 2017-05-12 06:51 | ED DISCHARGE INSTRUCTIONS ---
Patient: LISBETH MOSQUERA General Instructions [facility] VisitID: [id number] [address] [place] [address] 42y, M Registration Date/Time: 05/09/2017 05/09/2017 22:11 BP: 158/85. HR: 82. RR: 15. O2 saturation: 98%. Temp: 98.4 F. Pain level now: 0/10. Hypertensive. Oxygen saturation normal. Essential hypertension. Cellulitis (bilateral lower legs, acute). INSTRUCTIONS Warnings: GENERAL WARNINGS: Return or contact your physician immediately if your condition worsens or changes unexpectedly, if not improving as expected, or if other problems arise. Specifically return if pain, vomiting, bleeding, breathing difficulty or fever. Your Current Medications: CONTINUE TAKING THE FOLLOWING MEDICATIONS: None*. Prescription Medications: Bactrim DS 800 mg / 160 mg: take 1 tablet orally every 12 hours for 10 days. No refill. Substitution is permissible. (disp 20 tabs) Keflex 500 mg: take 1 capsule orally every 8 hours for 10 days. No refill. Substitution is permissible. (disp 30 caps) Follow-up: Return to the emergency department as needed. Follow up with your doctor in three days. Reason for referral: recheck today's concerns. Summary of care provided to patient via paper. Screening today revealed the patient's blood pressure to be in the normal range. The patient should follow up with a primary care provider for blood pressure management. Understanding of the discharge instructions verbalized by patient. Follow-up with: [facility], , , [address], [place], [id number] Follow up in three days. Reason for referral: contact if you do not have a primary care provider (PCP). Summary of care provided to patient via paper. ADDITIONAL INFORMATION Cellulitis You have an infection of the skin known as cellulitis. This usually starts with a scrape, cut, insect bite, blister or other opening in the skin which becomes infected. This is a serious condition. It must be watched closely to be sure the infection is not spreading. With antibiotic treatment, the size of the red area will gradually shrink in size until the skin returns to normal. This will take 7-10 days. The red area should never increase in size once the antibiotic medicine has been started. Occasionally, an infection will be resistant to one antibiotic and another one will have to be used. Home Care: 1) Limit the use of the affected part, since excess movement can cause the infection to spread. 2) If the infection is on your leg, walk as little as possible during the first few days of the treatment. Keep your leg elevated while sitting. This will reduce swelling. 3) Take all of the antibiotic medicine exactly as directed until it is gone. Be careful not to miss any doses, especially during the first seven days. Follow Up with your doctor or this facility as directed. Check the infected area daily for the warning signs listed below. Get Prompt Medical Attention if any of the following occur: -- Spreading area of redness -- Increasing swelling or pain -- Appearance of pus or drainage -- Fever over 100.4 F (38.0 C) oral, or over 101.4 F (38.6 C) rectal, after two days on antibiotics Staph Infection (MRSA) "Staph" is the short name for the common bacteria called "staphylococcus aureus". Staph bacteria are often present on the skin without causing an infection. If it gets under the skin an infection occurs. This causes redness, tenderness, swelling and sometimes fluid drainage. MRSA stands for "Methicillin-Resistant Staph Aureus". Unlike a common staph infection, MRSA bacteria are resistant to the usual antibiotics and harder to treat. Also, MRSA is more toxic than common staph bacteria. It can spread quickly throughout the body and cause a life-threatening illness. MRSA is spread to others by direct physical contact with the bacteria. MRSA can also be transmitted from items contaminated by a person who has the bacteria, such as bandages, towels, bed sheets, or sports equipment. It is not spread through the air. Once you have a MRSA skin infection, you are at risk of having it recur in the future. If MRSA infection is suspected, the doctor may take a wound culture to confirm the diagnosis. Any abscess will be drained. One or sometimes two antibiotics that work against MRSA will be prescribed. Home Care: 1) Take any antibiotics prescribed exactly as directed until they are gone. 2) Follow the same washing procedures as outlined for Household Members below. 3) Keep draining wounds covered with clean, dry bandages. Change dressings as they become soiled. 4) You and those in contact with you should wash their hands frequently with soap and warm water or use an alcohol-based hand security vehicle patrol officer. Do this after each time you change the bandage or touch the wound. 5) Avoid sharing personal items such as towels, washcloths, razors, clothing, or uniforms. Wash soiled sheets, towels or clothes in hot water with laundry detergent. Use an automatic clothes dryer set on high to kill any remaining bacteria. 6) Remove any artificial nails and nail romanian. 7) If you use a gym, wipe down equipment before and after each use. Treatment Of Household Members If you have been diagnosed with possible MRSA infection, those living with you are at higher risk of carrying the bacteria on their skin or in their nose, even if there is no sign of infection. Bacteria must be removed from the skin of all household members (including you) at the same time, so that it is not passed back and forth. Advise them to remove the bacteria as follows: Wash your whole body (scalp to toes) daily for five days with Hibiclens (chlorhexidine). Scrub fingernails with a brush for one minute twice a day. If any skin infections are present (boils, abscess, infected cut) these must be treated by a doctor. Washing alone will not treat a MRSA infection. Clean counter tops and children's toys; do not share personal items such as toothbrush and razors. It is okay to share glasses, plates, utensils. If antibiotic ointment was prescribed use it as directed. Follow Up with your doctor or as advised by our staff. If a wound culture was taken, call as directed in two days to obtain the results. If the culture result is positive for MRSA, tell medical personnel in the future that you were treated for this type of infection. Get Prompt Medical Attention if any of the following occur: -- Increasing redness, swelling or pain -- Red streaks in the skin around the wound -- Weakness or dizziness -- New appearance of pus or drainage from the wound -- New fever over 100.4 F (38.0 C) High Blood Pressure -- To Be Confirmed [No Tx] Your blood pressure was higher today than normal. Sometimes anxiety or pain can cause a temporary rise in blood pressure that later returns to normal. If your blood pressure is high on one measurement, this does not mean that you have hypertension (a chronic illness). However, you must have your blood pressure measured again within the next few days to find out if its still high. A normal blood pressure is 120/80 or less. The first (top) number is the "systolic" pressure. The second (bottom) number is the "diastolic" pressure. Hypertension exists when either the top number is 140 or higher, OR the bottom number is 90 or higher on repeated measurements. Blood pressure in the range of 120-140 (systolic) or 80-89 (diastolic) is considered "pre-hypertension". This means your are at risk for getting hypertension. You should have regular blood pressure checks to be sure your blood pressure is not rising. Home Care: Measure your blood pressure on 3 different days and write down the results. This can be done at your doctor's office or this facility. Some pharmacies and grocery stores offer automated blood pressure machines for your use. Follow Up: If your blood pressure is "high" (over 120/80) on 2 out of 3 days, you will need to follow up with your doctor for further evaluation and treatment. DO NOT PUT THIS OFF! Untreated high blood pressure increases the risk for heart attack, also known as acute myocardial infarction, or AMI, and stroke. It is a treatable condition. Get Prompt Medical Attention if any of the following occur: Chest pain or shortness of breath Severe headache Throbbing or rushing sound in the ears Nosebleed Sudden severe abdominal pain Extreme drowsiness, confusion or fainting Dizziness or vertigo (dizziness with spinning sensation) Weakness of an arm or leg or one side of the face Difficulty with speech or vision Sulfamethoxazole, Trimethoprim Oral tablet What is this medicine? SULFAMETHOXAZOLE; TRIMETHOPRIM or SMX-TMP (suhl fuh meth OK gisell zohl; trye METH oh prim) is a combination of a sulfonamide antibiotic and a second antibiotic, trimethoprim. It is used to treat or prevent certain kinds of bacterial infections. It will not work for colds, flu, or other viral infections. How should I use this medicine? Take this medicine by mouth with a full glass of water. Follow the directions on the prescription label. Take your medicine at regular intervals. Do not take it more often than directed. Do not skip doses or stop your medicine early. Talk to your farm machinery mechanic regarding the use of this medicine in children. Special care may be needed. This medicine has been used in children as young as 2 months of age. What side effects may I notice from receiving this medicine? Side effects that you should report to your doctor or health veterinarian laboratory animal care as soon as possible: allergic reactions like skin rash or hives, swelling of the face, lips, or tongue breathing problems fever or chills, sore throat irregular heartbeat, chest pain joint or muscle pain pain or difficulty passing urine red pinpoint spots on skin redness, blistering, peeling or loosening of the skin, including inside the mouth unusual bleeding or bruising unusually weak or tired yellowing of the eyes or skin Side effects that usually do not require medical attention (report to your doctor or health veterinarian laboratory animal care if they continue or are bothersome): diarrhea dizziness headache loss of appetite nausea, vomiting nervousness What may interact with this medicine? Do not take this medicine with any of the following medications: aminobenzoate potassium dofetilide metronidazole This medicine may also interact with the following medications: LAWSON inhibitors like benazepril, enalapril, lisinopril, and ramipril cyclosporine digoxin diuretics indomethacin medicines for diabetes methenamine methotrexate phenytoin potassium supplements pyrimethamine sulfinpyrazone tricyclic antidepressants warfarin What if I miss a dose? If you miss a dose, take it as soon as you can. If it is almost time for your next dose, take only that dose. Do not take double or extra doses. Where should I keep my medicine? Keep out of the reach of children. Store at room temperature between 20 to 25 degrees C (68 to 77 degrees F). Protect from light. Throw away any unused medicine after the expiration date. What should I tell my health care provider before I take this medicine? They need to know if you have any of these conditions: anemia asthma being treated with anticonvulsants if you frequently drink alcohol containing drinks kidney disease liver disease low level of folic acid or [id number] dehydrogenase poor nutrition or malabsorption porphyria severe allergies thyroid disorder an unusual or allergic reaction to sulfamethoxazole, trimethoprim, sulfa drugs, other medicines, foods, dyes, or preservatives or trying to get breast-feeding What should I watch for while using this medicine? Tell your doctor or health veterinarian laboratory animal care if your symptoms do not improve. Drink several glasses of water a day to reduce the risk of kidney problems. Do not treat diarrhea with over the counter products. Contact your doctor if you have diarrhea that lasts more than 2 days or if it is severe and watery. This medicine can make you more sensitive to the sun. Keep out of the sun. If you cannot avoid being in the sun, wear protective clothing and use a sunscreen. Do not use sun lamps or tanning beds/booths. Cephalexin Monohydrate Oral tablet What is this medicine? CEPHALEXIN (sef a KAIA in) is a cephalosporin antibiotic. It is used to treat certain kinds of bacterial infections It will not work for colds, flu, or other viral infections. How should I use this medicine? Take this medicine by mouth with a full glass of water. Follow the directions on the prescription label. This medicine can be taken with or without food. Take your medicine at regular intervals. Do not take your medicine more often than directed. Take all of your medicine as directed even if you think you are better. Do not skip doses or stop your medicine early. Talk to your farm machinery mechanic regarding the use of this medicine in children. While this drug may be prescribed for selected conditions, precautions do apply. What side effects may I notice from receiving this medicine? Side effects that you should report to your doctor or health veterinarian laboratory animal care as soon as possible: allergic reactions like skin rash, itching or hives, swelling of the face, lips, or tongue breathing problems pain or trouble passing urine redness, blistering, peeling or loosening of the skin, including inside the mouth severe or watery diarrhea unusually weak or tired yellowing of the eyes, skin Side effects that usually do not require medical attention (report to your doctor or health veterinarian laboratory animal care if they continue or are bothersome): gas or heartburn genital or anal irritation headache joint or muscle pain nausea, vomiting What may interact with this medicine? probenecid some other antibiotics What if I miss a dose? If you miss a dose, take it as soon as you can. If it is almost time for your next dose, take only that dose. Do not take double or extra doses. There should be at least 4 to 6 hours between doses. Where should I keep my medicine? Keep out of the reach of children. Store at room temperature between 59 and 86 degrees F (15 and 30 degrees C). Throw away any unused medicine after the expiration date. What should I tell my health care provider before I take this medicine? They need to know if you have any of these conditions: kidney disease stomach or intestine problems, especially colitis an unusual or allergic reaction to cephalexin, other cephalosporins, penicillins, other antibiotics, medicines, foods, dyes or preservatives or trying to get breast-feeding What should I watch for while using this medicine? Tell your doctor or health veterinarian laboratory animal care if your symptoms do not begin to improve in a few days. Do not treat diarrhea with over the counter products. Contact your doctor if you have diarrhea that lasts more than 2 days or if it is severe and watery. If you have diabetes, you may get a false-positive result for sugar in your urine. Check with your doctor or health veterinarian laboratory animal care. You have been given the following additional information: Cellulitis MRSA Skin Infection, Suspected Or Confirmed Hypertension, To Be Confirmed Sulfamethoxazole, Trimethoprim Oral tablet Cephalexin Monohydrate Oral tablet (Electronically signed by Dusty Calvo Dr. 05/11/2017 5:16)
== END 2017-05-09 23:18 | disposition home or self-care (01) ==
LOC: ED SRH 21:49
DX: L03.116 Cellulitis of left lower limb (principal); L03.115 Cellulitis of right lower limb; I10 Essential (primary) hypertension; Z86.14 Personal history of Methicillin resistant Staphylococcus aureus infection